=== PATIENT | male | born 1990 | race Caucasian/White ===

== ENCOUNTER → 2017-05-25 | Outpatient (CLI) | payer OTHER ==
--- NOTE | 2017-05-25 14:38 | XR ---
Cervical spine HISTORY: Sprain, trauma and pain X views of the cervical spine Comparisons Cervical vertebral bodies show preserved height, alignment, and bone mineralization. Disc spaces are maintained. No significant foraminal encroachment. IMPRESSION: No acute fracture or subluxation.
--- NOTE | 2017-05-25 14:40 | XR ---
Lumbosacral spine HISTORY: Trauma and pain Views of the lumbosacral spine Lumbar vertebral bodies show preserved height and alignment. There is no spondylolysis. Bone minerali zation is maintained. Disc spaces are normal. IMPRESSION: No fracture or subluxation.
--- NOTE | 2017-05-25 16:11 | XR ---
Thoracic spine HISTORY: Trauma and pain 2 views of the thoracic spine on 4 images There is a slight spinal curvature. Thoracic vertebral bodies show preserved height, alignment, and b one mineralization. There is multilevel spondylosis. Disc spaces are maintained. IMPRESSION: Thoracic spondylosis. No acute fracture or subluxation. Mild spinal curvature.
== END ==
LOC: RADXRMAIN 13:57
PROVIDERS: ATTEND Family Medicine
DX: S13.9XXA Sprain of joints and ligaments of unspecified parts of neck, initial encounter (principal); S23.3XXA Sprain of ligaments of thoracic spine, initial encounter; M47.814 Spondylosis without myelopathy or radiculopathy, thoracic region
CPT/HCPCS: 72050; 72072; 72110

== ENCOUNTER → 2017-07-17 | Outpatient (CLI) | payer OTHER ==
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
== END | disposition home or self-care (01) ==
LOC: RADMRIMAIN 07:12
PROVIDERS: ATTEND Family Medicine
DX: M54.2 Cervicalgia (principal)
CPT/HCPCS: 72141

== ENCOUNTER → 2019-06-18 | Outpatient (CLI) | payer OTHER ==
[2019-06-18 12:34] LABS: Basophils # (A) 0.1 k/uL (0-0.2); Basophils % (A) 1 %; Eosinophils # (A) 0.1 k/uL (0-0.7); Eosinophils % (A) 2 %; HCT 48.5 % (39.0-53.0); HGB 16.4 gm/dL (13.0-17.5); Lymphocytes % (A) 31 %; MCH 29.8 pg (25.0-35.0); MCHC 33.7 g/dL (31.0-37.0); MCV 88.3 fL (80.0-100.0); Mean Platelet Volume 8.5; Monocytes # (A) 0.4 k/uL (0-1.0); Monocytes % (A) 6 %; Neutrophils # (A) 3.8 k/uL (1.3-7.7); Neutrophils % (A) 59 %; Platelet Count 247 k/uL (150-450); RBC 5.49 m/uL (4.30-5.90); RDW 12.9 % (11.5-15.5); WBC 6.5 k/uL (3.8-10.6)
[2019-06-18 18:36] LABS: African American GFR (CKD) 116.5 (60.0-200.0); Albumin 4.8 g/dL (3.80-4.90); Albumin/Globulin Ratio 2.29 (1.60-3.17); Anion Gap 9.2 mmol/L (4.00-12.00); Bilirubin, Conjugated 0.2 mg/dL (0.20-0.40); Bilirubin,Unconjugated 0.4 mg/dL; Calcium 9.8 mg/dL (8.7-10.3); Carbon Dioxide 26.8 mmol/L (21.6-31.8); Chol/HDL Ratio 5.54; Globulin 2.1 g/dL (1.6-3.3); LDL Cholesterol,Calculated 99.6 mg/dL (0.0-131.0); Non-African American GFR(CKD) 100.5 (60.0-200.0); Potassium 4.7 mmol/L (3.5-5.5); Total Bilirubin 0.6 mg/dL (0.2-1.2); Total Protein 6.9 g/dL (6.2-8.2); VLDL Calculation 77.4 mg/dL (5.00-40.00)
== END | disposition home or self-care (01) ==
LOC: LABWHC1 11:11
PROVIDERS: ATTEND Family Medicine
DX: Z00.00 Encounter for general adult medical examination without abnormal findings (principal)
CPT/HCPCS: 36415; 80053; 80061; 82248; 84443; 85025

== ENCOUNTER 2020-10-29 09:54 | Inpatient (IN) | payer OTHER ==
[2020-10-29] MEDS ORDERED: ACETAMINOPHEN TAB 500 MG TAB PO STA (10:20)
[2020-10-29] MEDS ORDERED: SODIUM CHLORIDE 0.9% 1,000 ML IV STA (10:21)
[2020-10-29] MEDS ORDERED: IBUPROFEN 600 MG TAB PO STA (10:21)
--- NOTE | 2020-10-29 10:36 | ED ---
SOB HPI <Jose Donaldson - Last Filed: 10/29/20 13:22> - General Source: patient Mode of arrival: ambulatory Limitations: no limitations <Hellen Newell - Last Filed: 10/29/20 13:39> - General Chief Complaint: Shortness of Breath Stated Complaint: positive covid SOB Time Seen by Provider: 10/29/20 10:03 - History of Present Illness Initial Comments: Patient is a 30-year-old male presenting to the emergency department via EMS with increasing shortness of breath over the past week. Patient states his covid symptoms started 9 days ago, he went to the urgent care and was diagnosed one week ago with covid. He states he has not had fevers until today. He's been having a cough, burning in his chest when he coughs as well as some mild shortness of breath. He's been having diarrhea as well. No vomiting, is trying to drink fluids, appetite has been low. He states he did not take any Tylenol or Motrin yet today. He denies history of asthma. He went back to urgent care today who called EMS because his oxygen levels were in the mid 80s. He denies any chest pains, no abdominal pain. He is complaining of some achiness in his left lower back. He has no further complaints at this time. Upon arrival to the ER, he is febrile 101.9, tachycardia at 109, 93% on 2 L. (Hellen Newell) - Related Data Home Medications Medication Instructions Recorded Confirmed No Known Home Medications 10/29/20 10/29/20 Allergies Allergy/AdvReac Type Severity Reaction Status Date / Time No Known Allergies Allergy Verified 10/29/20 11:02 Review of Systems ROS Other: All systems not noted in ROS Statement are negative. <Jose Donaldson - Last Filed: 10/29/20 13:22> ROS Other: All systems not noted in ROS Statement are negative. <Hellen Newell - Last Filed: 10/29/20 13:39> ROS Statement: Those systems with pertinent positive or pertinent negative responses have been documented in the HPI. Past Medical History Past Medical History: No Reported History History of Any Multi-Drug Resistant Organisms: None Reported Past Surgical History: No Surgical Hx Reported Past Psychological History: No Psychological Hx Reported Smoking Status: Former smoker Past Alcohol Use History: Occasional Past Drug Use History: None Reported <Hellen Newell - Last Filed: 10/29/20 13:39> General Exam Limitations: no limitations <Hellen Newell - Last Filed: 10/29/20 13:39> - General Exam Comments Initial Comments: GENERAL: Patient is well-developed and well-nourished. Patient is nontoxic and in no acute distress. HEAD: Atraumatic, normocephalic. EYES: Pupils equal round and reactive to light, extraocular movements intact, sclera anicteric, conjunctiva are normal. Eyelids were unremarkable. ENT: TMs normal, nares patent, oropharynx clear without exudates. Moist mucous membranes. NECK: Normal range of motion, supple without lymphadenopathy or JVD. LUNGS: Unlabored respirations. Breath sounds clear to auscultation bilaterally and equal. No wheezes rales or rhonchi. HEART: Tachycardia rate and rhythm without murmurs, rubs or gallops. ABDOMEN: Soft, nontender, normoactive bowel sounds. No guarding, no rebound. No masses appreciated. : Deferred MUSCULOSKELETAL: Normal extremities with adequate strength and normal range of motion, no pitting or edema. No clubbing or cyanosis. NEUROLOGICAL: Patient is alert and oriented x 3. Motor and sensory are also intact. Cranial nerves II through XII grossly intact. Symmetrical smile. Normal speech, normal gait. PSYCH: Normal mood, normal affect. SKIN: Warm, Dry, normal turgor, no rashes or lesions noted. (Hellen Newell) Course Vital Signs 10/29/20 10/29/20 10/29/20 09:56 10:20 10:22 Temperature 101.9 F H Pulse Rate 109 H Respiratory 18 Rate Blood Pressure 116/75 O2 Sat by Pulse 97 88 L 93 L Oximetry 10/29/20 10/29/20 11:25 12:28 Temperature 100 F H Pulse Rate 97 98 Respiratory 18 18 Rate Blood Pressure 108/63 100/62 O2 Sat by Pulse 93 L 93 L Oximetry Medical Decision Making - Lab Data Result diagrams: 10/29/20 10:24 10/29/20 10:24 <Jose Donaldson - Last Filed: 10/29/20 13:22> - Lab Data Result diagrams: 10/29/20 10:24 10/29/20 10:24 <Hellen Newell - Last Filed: 10/29/20 13:39> - Medical Decision Making Patient reevaluated. Patient has wheezing. Changes with x-ray and computed tomography scan. Patient updated on results and plan. Case discussed in detail with Dr. Krishnan, who will admit his patient. (Jose Donaldson) Patient is a 30-year-old healthy male here diagnosed with Covid one week ago here for increased shortness of breath. He did come via EMS from urgent care due to low oxygen saturation. His symptoms started 9 days ago. He did arrive febrile, slightly tachycardia, 93% on 2 L. he does drop down to 8887% on room air. Labs show a white count of 15.4, sodium is 132, liver enzymes, LDH and CRP are all elevated consistent with Covid infection. D-dimer is elevated at 1.09. Chest x-ray shows correlate for pneumonia, possible associated effusion. Given a positive d-dimer and a fusion, CT of the chest was ordered, and shows no evidence for PE, bilateral infiltrates, moderate left lower lobe atelectasis with pleural effusion. Patient was given some fluids, Tylenol and Motrin for his fever. He remains stable at 93% on 2 L. Patient will be admitted for Covid pneumonia, hypoxia, left pleural effusion. Dr. Krishnan is accepting with pulmonary on consult. We will start albuterol inhaler, IV steroids. Case discussed with Dr. Donaldson. (Hellen Newell) - Lab Data Lab Results 10/29/20 10/29/20 10/29/20 Range/Units 10:24 10:24 10:24 WBC 15.4 H (3.8-10.6) k/uL RBC 4.97 (4.30-5.90) m/uL Hgb 15.1 (13.0-17.5) gm/dL Hct 42.3 (39.0-53.0) % MCV 85.1 (80.0-100.0) fL MCH 30.5 (25.0-35.0) pg MCHC 35.8 (31.0-37.0) g/dL RDW 12.5 (11.5-15.5) % Plt Count 270 (150-450) k/uL MPV 8.1 Neutrophils % 90 % Lymphocytes % 5 % Monocytes % 4 % Eosinophils % 0 % Basophils % 0 % Neutrophils # 13.9 H (1.3-7.7) k/uL Lymphocytes # 0.8 L (1.0-4.8) k/uL Monocytes # 0.6 (0-1.0) k/uL Eosinophils # 0.0 (0-0.7) k/uL Basophils # 0.1 (0-0.2) k/uL PT 11.9 (9.0-12.0) sec INR 1.1 (<1.2) APTT 26.9 (22.0-30.0) sec D-Dimer 1.09 H (<0.60) mg/L FEU Sodium 132 L (137-145) mmol/L Potassium 3.6 (3.5-5.1) mmol/L Chloride 94 L (98-107) mmol/L Carbon Dioxide 28 (22-30) mmol/L Anion Gap 10 mmol/L BUN 13 (9-20) mg/dL Creatinine 1.02 (0.66-1.25) mg/dL Est GFR (CKD-EPI)AfAm >90 (>60 ml/min/1.73 sqM) Est GFR (CKD-EPI)NonAf >90 (>60 ml/min/1.73 sqM) Glucose 127 H (74-99) mg/dL Plasma Lactic Acid Vinayak (0.7-2.0) mmol/L Calcium 8.9 (8.4-10.2) mg/dL Magnesium 2.2 (1.6-2.3) mg/dL Total Bilirubin 1.3 (0.2-1.3) mg/dL AST 108 H (17-59) U/L ALT 155 H (4-49) U/L Alkaline Phosphatase 162 H (38-126) U/L Lactate Dehydrogenase 936 H (313-618) U/L C-Reactive Protein 40.0 H (<1.0) mg/dL Total Protein 6.6 (6.3-8.2) g/dL Albumin 3.7 (3.5-5.0) g/dL 10/29/20 Range/Units 10:24 WBC (3.8-10.6) k/uL RBC (4.30-5.90) m/uL Hgb (13.0-17.5) gm/dL Hct (39.0-53.0) % MCV (80.0-100.0) fL MCH (25.0-35.0) pg MCHC (31.0-37.0) g/dL RDW (11.5-15.5) % Plt Count (150-450) k/uL MPV Neutrophils % % Lymphocytes % % Monocytes % % Eosinophils % % Basophils % % Neutrophils # (1.3-7.7) k/uL Lymphocytes # (1.0-4.8) k/uL Monocytes # (0-1.0) k/uL Eosinophils # (0-0.7) k/uL Basophils # (0-0.2) k/uL PT (9.0-12.0) sec INR (<1.2) APTT (22.0-30.0) sec D-Dimer (<0.60) mg/L FEU Sodium (137-145) mmol/L Potassium (3.5-5.1) mmol/L Chloride (98-107) mmol/L Carbon Dioxide (22-30) mmol/L Anion Gap mmol/L BUN (9-20) mg/dL Creatinine (0.66-1.25) mg/dL Est GFR (CKD-EPI)AfAm (>60 ml/min/1.73 sqM) Est GFR (CKD-EPI)NonAf (>60 ml/min/1.73 sqM) Glucose (74-99) mg/dL Plasma Lactic Acid Vinayak 1.4 (0.7-2.0) mmol/L Calcium (8.4-10.2) mg/dL Magnesium (1.6-2.3) mg/dL Total Bilirubin (0.2-1.3) mg/dL AST (17-59) U/L ALT (4-49) U/L Alkaline Phosphatase (38-126) U/L Lactate Dehydrogenase (313-618) U/L C-Reactive Protein (<1.0) mg/dL Total Protein (6.3-8.2) g/dL Albumin (3.5-5.0) g/dL - EKG Data EKG Comments: Sinus tachycardia, no signs of acute ischemia. Ventricular rate 102, RI interval 138, QT 322. (Hellen Newell) Disposition <Jose Donaldson - Last Filed: 10/29/20 13:22> Decision Date: 10/29/20 Decision Time: 13:37 <Hellen Newell - Last Filed: 10/29/20 13:39> Clinical Impression: Pneumonia due to COVID-19 virus, Hypoxia, Pleural effusion, left Disposition: ADMITTED IP TO THIS [facility] Condition: Stable Referrals: Steve Banda MD [Primary Care Provider] - 1-2 days
[2020-10-29 10:45] LABS: Basophils # (A) 0.1 k/uL (0-0.2); Basophils % (A) 0 %; Eosinophils % (A) 0 %; HCT 42.3 % (39.0-53.0); HGB 15.1 gm/dL (13.0-17.5); Lymphocytes # (A) 0.8 k/uL (1.0-4.8); Lymphocytes % (A) 5 %; MCH 30.5 pg (25.0-35.0); MCHC 35.8 g/dL (31.0-37.0); MCV 85.1 fL (80.0-100.0); Mean Platelet Volume 8.1; Monocytes # (A) 0.6 k/uL (0-1.0); Monocytes % (A) 4 %; Neutrophils # (A) 13.9 k/uL (1.3-7.7); Neutrophils % (A) 90 %; Platelet Count 270 k/uL (150-450); RBC 4.97 m/uL (4.30-5.90); RDW 12.5 % (11.5-15.5); WBC 15.4 k/uL (3.8-10.6)
[2020-10-29 11:01] LABS: ALT 155 U/L (4-49); AST 108 U/L (17-59); African American GFR (CKD) >90 (>60 ml/min/1.73 sqM); Albumin 3.7 g/dL (3.5-5.0); Alkaline Phosphatase 162 U/L (38-126); Anion Gap 10 mmol/L; Blood Urea Nitrogen 13 mg/dL (9-20); Calcium 8.9 mg/dL (8.4-10.2); Carbon Dioxide 28 mmol/L (22-30); Chloride 94 mmol/L (98-107); Glucose 127 mg/dL (74-99); LDH 936 U/L (313-618); Magnesium 2.2 mg/dL (1.6-2.3); Non-African American GFR(CKD) >90 (>60 ml/min/1.73 sqM); Potassium 3.6 mmol/L (3.5-5.1); Sodium 132 mmol/L (137-145); Total Bilirubin 1.3 mg/dL (0.2-1.3); Total Protein 6.6 g/dL (6.3-8.2)
[2020-10-29 11:10] LABS: INR 1.1 (<1.2); Partial Thromboplastin Time 26.9 sec (22.0-30.0); Prothrombin Time 11.9 sec (9.0-12.0)
[2020-10-29 11:20] LABS: D-Dimer 1.09 mg/L FEU (<0.60)
--- NOTE | 2020-10-29 11:21 | XR ---
EXAMINATION TYPE: XR chest 1V portable DATE OF EXAM: 10/29/2020 COMPARISON: NONE HISTORY: Covid positive, shortness breath and cough TECHNIQUE: Single frontal view of the chest is obtained. FINDINGS: There is abnormal density at the left lung base, the left heart border and left hemidiaphr agm are secured. There is no evident pneumothorax. Minimal patchy density on the right. Heart is not entirely visualized. Patient is rotated. IMPRESSION: Correlate for pneumonia, there may be associated effusion.
--- NOTE | 2020-10-29 12:20 | CT ---
EXAMINATION TYPE: CT chest angio for PE DATE OF EXAM: 10/29/2020 COMPARISON: None HISTORY: Shortness of breath and cough CT DLP: 428.3 mGycm CONTRAST: CT chest with contrast and 3D reconstruction with MIP imaging is performed with IV Contrast, patient injected with 83 mL of Isovue 370. Contrast-enhanced CT of the chest was performed through the course of the pulmonary arteries with dilia g and mediastinal window settings submitted. 3D reconstruction with MIP imaging was also performed. PULMONARY ARTERIES: The pulmonary arteries and their major tributaries are patent. I do not see balta dence for sizable filling defect to suggest pulmonary embolic process. LUNGS: Bilateral infiltrates noted. Moderate left lower lobe atelectasis with pleural effusion. No pu lmonary nodule or mass is detected. MEDIASTINUM: Thoracic aorta is of normal caliber,however, evaluation is limited given timing of the contrast bolus. If there is concern for thoracic aortic pathology consider MEDARDO. Correlate clinicall y . The heart is not enlarged. No evidence for mediastinal mass. No mediastinal lymph nodes greater than 1cm. HILAR STRUCTURES: No evidence for mass. No hilar lymph nodes greater than 1 cm. UPPER ABDOMEN: No significant abnormality is seen. IMPRESSION: 1. No evidence for Pulmonary embolism at this time. 2.Bilateral infiltrates noted. Moderate left lower lobe atelectasis with pleural effusion.
[2020-10-29] MEDS ORDERED: NALOXONE 0.4 MG/ML 1 ML VIAL IV PRN (13:33)
[2020-10-29] MEDS ORDERED: IBUPROFEN 400 MG TAB PO PRN (13:33)
[2020-10-29] MEDS ORDERED: ALBUTEROL HFA INHALER INHALATION STA (13:35)
[2020-10-29] MEDS: DEXAMETHASONE SOD PHOSPHATE 10 MG/ML 1 ML VIAL IV SCH (14:00)
[2020-10-29] MEDS: PANTOPRAZOLE 40 MG/10 ML VIAL IVP SCH (16:00)
[2020-10-29] MEDS: ENOXAPARIN 40 MG/0.4 ML SYRINGE SQ SCH (16:00)
[2020-10-29] MEDS ORDERED: REMDESIVIR 200 MG in SODIUM CHLORIDE 0.9% 250 ML IVPB ONE (16:00)
[2020-10-29] MEDS ORDERED: AZITHROMYCIN 500 MG in SODIUM CHLORIDE 0.9% 250 ML IVPB SCH (18:00)
--- NOTE | 2020-10-29 18:08 | P.CNPUL ---
History of Present Illness Consult date: 10/29/20 Requesting physician: Jose Donaldson Reason for consult: chest pain, hypoxemia, pneumonia, pleural effusion, abnormal CXR/CT Chief complaint: Chest pain, back discomfort, pneumonia, COVID 19 History of present illness: 30-year-old white male patient with significant medical history, who is a former smoker, who presented to the emergency department via EMS on 10/29/2020 with increasing shortness of breath over the course of the past week. Patient and symptoms of comorbid 9 days ago, she went to the [facility] urgent care and was diagnosed with COVID-19 infection. He states he did not have fevers until today. His been having a cough, burning in his chest, back discomfort, his been having diarrhea as well, but no vomiting. He is trying to maintain his fluid intake, but appetite has been poor. He denies any chronic medical conditions, denies any chronic lung disease. He states they did not do a chest x-ray at the urgent care clinic. He did not require oxygen when he was seen there. Today she went back to the urgent care clinic who called the EMS because of his oxygen levels that were low in the mid 80s. He complains of achy discomfort in his left lower back. Upon arrival to the ER he had a fever of 101.9, tachycardia at 109, and he is on 2 L of supplemental oxygen with a pulse ox of 93%. Chest x- ray shows abnormal density at the left lung base, there is no evident pneu mothorax, there is minimal patchy density on the right. CTA chest showed no evidence of pulmonary embolism at this time, and bilateral infiltrates with moderate left lower lobe atelectasis with pleural effusion. EKG showed sinus tachycardia at a rate of 102 BPM. His white blood cell count is elevated at 15.4, hemoglobin is 15.1, his neutrophil count is 13.9, his lymphopenic with lymphocyte count 0.8, d-dimer was elevated at 1.[address] evidence of pulmonary embolism, sodium is 132, potassium is 3.6, chloride is 94, BUN is 13 and creatinine is 1.02, plasma lactic acid was 1.4, AST was 108, ALT was 155, alk phos was 162, LDH was 936, and CRP is 40. Review of Systems All systems: negative Constitutional: Denies chills, Denies fever Eyes: denies blurred vision, denies pain Ears, nose, mouth and throat: Denies headache, Denies sore throat Cardiovascular: Reports chest pain, Denies shortness of breath Respiratory: Reports dyspnea, Denies cough Gastrointestinal: Denies abdominal pain, Denies diarrhea, Denies nausea, Denies vomiting Musculoskeletal: Denies myalgias Integumentary: Denies pruritus, Denies rash Neurological: Denies numbness, Denies weakness Psychiatric: Denies anxiety, Denies depression Endocrine: Denies fatigue, Denies weight change Past Medical History Past Medical History: No Reported History History of Any Multi-Drug Resistant Organisms: None Reported Past Surgical History: No Surgical Hx Reported Past Psychological History: No Psychological Hx Reported Smoking Status: Former smoker Past Alcohol Use History: Occasional Past Drug Use History: None Reported Medications and Allergies Home Medications Medication Instructions Recorded Confirmed Type No Known Home Medications 10/29/20 10/29/20 History Allergies Allergy/AdvReac Type Severity Reaction Status Date / Time No Known Allergies Allergy Verified 10/29/20 11:02 Physical Exam Vitals: Vital Signs Temp Pulse Pulse Resp BP BP Pulse Ox 10/29/20 16:49 98.6 F 93 16 114/74 91 L 10/29/20 14:45 18 10/29/20 14:20 98.4 F 73 18 111/74 96 10/29/20 13:44 91 18 107/72 94 L 10/29/20 12:28 100 F H 98 18 100/62 93 L 10/29/20 11:25 97 18 108/63 93 L 10/29/20 10:22 93 L 10/29/20 10:20 88 L 10/29/20 09:56 101.9 F H 109 H 18 116/75 97 Intake and Output 10/29/20 10/29/20 10/29/20 06:59 14:59 22:59 Other: Weight 101.605 kg GENERAL EXAM: Alert, very pleasant, 30-year-old white male on 2 L of oxygen and the pulse ox 91-96%, comfortable in no apparent distress. HEAD: Normocephalic/atraumatic. EYES: Normal reaction of pupils, equal size. Conjunctiva pink, sclera white. NOSE: Clear with pink turbinates. THROAT: No erythema or exudates. NECK: No masses, no JVD, no thyroid enlargement, no adenopathy. CHEST: No chest wall deformity. Symmetrical expansion. LUNGS: Equal air entry with diminished breath sounds and crackles at the left base CVS: Regular rate and rhythm, normal S1 and S2, no gallops, no murmurs, no rubs ABDOMEN: Soft, nontender. No hepatosplenomegaly, normal bowel sounds, no guarding or rigidity. EXTREMITIES: No clubbing, no edema, no cyanosis, 2+ pulses and upper and lower extremities. MUSCULOSKELETAL: Muscle strength and tone normal. SPINE: No scoliosis or deformity SKIN: No rashes CENTRAL NERVOUS SYSTEM: Alert and oriented -3. No focal deficits, tone is normal in all 4 extremities. PSYCHIATRIC: Alert and oriented -3. Appropriate affect. Intact judgment and insight. Results - Laboratory Findings CBC and BMP: 10/29/20 10:24 10/29/20 10:24 PT/INR, D-dimer PT 11.9 sec (9.0-12.0) 10/29/20 10:24 INR 1.1 (<1.2) 10/29/20 10:24 D-Dimer 1.09 mg/L FEU (<0.60) H 10/29/20 10:24 Abnormal lab findings: Abnormal Labs 10/29/20 10/29/20 10/29/20 10:24 10:24 10:24 WBC 15.4 H Neutrophils # 13.9 H Lymphocytes # 0.8 L D-Dimer 1.09 H Sodium 132 L Chloride 94 L Glucose 127 H AST 108 H ALT 155 H Alkaline Phosphatase 162 H Lactate Dehydrogenase 936 H C-Reactive Protein 40.0 H - Diagnostic Findings Chest x-ray: report reviewed, image reviewed CT scan - chest: report reviewed, image reviewed Assessment and Plan Plan: Assessment #1. Acute hypoxic respiratory failure secondary to COVID-19 pneumonia and possibility of community acquired pneumonia in the left lower lobe with parapneumonic pleural effusion. Patient was started on antibiotics and Remdesivir today on 10/29/2020 #2. Elevated d-dimer of 1.[address] evidence of pulmonary embolism #3. Elevated liver enzymes, possibly related to viral pneumonia, we'll also test for Legionella pneumonia #4. Hyponatremia, possibly related to dehydration #5. Former smoker Plan: Continue Decadron Chest x-ray and CT chest reviewed, suspect possibility of left lung pneumonia with parapneumonic effusion, which appears to be loculated, we will add empiric antibiotics in the form of azithromycin and Rocephin We will start on Remdesivir send procalcitonin level, and Legionella urine antigen Continue IV hydration GI and DVT prophylaxis Follow-up chest x-ray tomorrow If doesn't show improvement consider ultrasound of the chest I performed a history & physical examination of the patient and discussed their management with my nurse practitioner, Melba Cardenas. I reviewed the nurse practitioner's note and agree with the documented findings and plan of care. Lung sounds are positive for bibasilar rales. The findings and the impression was discussed with the patient. I attest to the documentation by the nurse practitioner. Time with Patient: Greater than 30
[2020-10-29] MEDS: ACETAMINOPHEN TAB 325 MG TAB PO PRN (19:39)
[2020-10-29] MEDS: ASCORBIC ACID 500 MG TAB PO SCH (19:39)
[2020-10-30] MEDS: ACETAMINOPHEN TAB 325 MG TAB PO PRN ×2 (05:49→20:37)
--- NOTE | 2020-10-30 07:28 | XR ---
EXAMINATION TYPE: XR chest 1V portable DATE OF EXAM: 10/30/2020 COMPARISON: Chest x-ray 10/29/2020 HISTORY: Pneumonia TECHNIQUE: Single frontal view of the chest is obtained. FINDINGS: Findings are similar to prior exam. Patchy bilateral airspace disease noted IMPRESSION: Left lower lobe atelectasis versus pneumonia and associated effusion,, bilateral pneumon ia, follow-up recommended
[2020-10-30] MEDS: PANTOPRAZOLE 40 MG/10 ML VIAL IVP SCH (08:22)
[2020-10-30] MEDS: ZINC SULFATE 220 MG CAP PO SCH (08:22)
[2020-10-30] MEDS: ENOXAPARIN 40 MG/0.4 ML SYRINGE SQ SCH (08:22)
[2020-10-30] MEDS: ASCORBIC ACID 500 MG TAB PO SCH ×2 (08:22→20:42)
[2020-10-30] MEDS: DEXAMETHASONE SOD PHOSPHATE 10 MG/ML 1 ML VIAL IV SCH (08:22)
[2020-10-30 08:29] LABS: ALT 124 U/L (4-49); AST 86 U/L (17-59); African American GFR (CKD) >90 (>60 ml/min/1.73 sqM); Albumin 3.1 g/dL (3.5-5.0); Albumin/Globulin Ratio 1.2; Alkaline Phosphatase 144 U/L (38-126); Anion Gap 11 mmol/L; Blood Urea Nitrogen 14 mg/dL (9-20); Calcium 8.8 mg/dL (8.4-10.2); Carbon Dioxide 25 mmol/L (22-30); Chloride 99 mmol/L (98-107); Globulin 2.6 g/dL; Glucose 122 mg/dL (74-99); Non-African American GFR(CKD) >90 (>60 ml/min/1.73 sqM); Potassium 3.6 mmol/L (3.5-5.1); Sodium 135 mmol/L (137-145); Total Protein 5.7 g/dL (6.3-8.2)
[2020-10-30 09:03] LABS: C Reactive Protein 36.1 mg/dL (<1.0)
[2020-10-30 11:56] LABS: Basophils # (A) 0.02 X 10*3/uL (0.00-0.10); Basophils % (A) 0.1 %; Eosinophils # (A) 0 X 10*3/uL (0.04-0.35); Eosinophils % (A) 0 %; HCT 38.7 % (39.6-50.0); HGB 13.1 g/dL (13.0-17.0); Lymphocytes # (A) 0.92 X 10*3/uL (0.90-5.00); Lymphocytes % (A) 4.7 %; MCH 29.2 pg (27.0-32.0); MCHC 33.9 g/dL (32.0-37.0); MCV 86.2 fL (80.0-97.0); Monocytes # (A) 1.06 X 10*3/uL (0.20-1.00); Monocytes % (A) 5.4 %; Neutrophils # (A) 17.55 X 10*3/uL (1.80-7.70); Neutrophils % (A) 88.8 %; Platelet Count 332 X 10*3/uL (140-440); RBC 4.49 X 10*6/uL (4.40-5.60); RDW 12.8 % (11.5-14.5); WBC 19.74 X 10*3/uL (4.50-10.00)
--- NOTE | 2020-10-30 14:07 | P.HPIM ---
History of Present Illness H&P Date: 10/30/20 Chief Complaint: Shortness of breath, positive for Covid 30-year-old male patient presenting to the emergency department via EMS for worsening shortness of breath over the week. Patient had been seen at a local urgent care approximately 1 week ago. He was treated and sent home to quarantine and treat with [id number] medications. Patient's symptoms worsened and presented to same urgent care where he was found to have oxygen saturations in the low 80s. EMS was called and he was subsequently brought to the emergency room for treatment. In the emergency room his temperature was 101.9, and his tachycardia to 109 in maintain oxygen saturation 93% on 2 L nasal cannula. Patient history of no home medications at this time. 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 Currently patient is sitting up in bed in 2 L nasal cannula resting comfortably does complain of left sided pain with deep breathing and coughing. States his pain i s improved from yesterday. Patient mentions gastric upset over the past several days with noted diarrhea is improving at this time. Most recent lab work WBC is 19.7, hemoglobin 13.1, hematocrit 38.7, platelet count of 332, d-dimer of 1.20. Chemistry reveals sodium of 135, potassium 3.6, JOHN of 14, creatinine 0.81, lupus 122, liver enzymes are improved today is AST of 86 and ELT of 124 and alk phos trending down as well to 144. C-reactive protein trending down to 36.1 with a pro-calcitonin level of 1.04 Review of Systems Constitutional: Reports as per HPI, Reports chills, Reports fatigue, Reports fever, Reports sweats Ears, nose, mouth and throat: Reports as per HPI Cardiovascular: Reports as per HPI Respiratory: Reports cough, Reports dyspnea, Reports pain on inspiration, Reports respiratory infections Gastrointestinal: Reports diarrhea Genitourinary: Reports as per HPI Musculoskeletal: Reports myalgias Integumentary: Reports as per HPI Neurological: Reports as per HPI Psychiatric: Reports as per HPI Endocrine: Reports as per HPI Hematologic/Lymphatic: Reports as per HPI Allergic/Immunologic: Reports as per HPI Past Medical History Past Medical History: No Reported History History of Any Multi-Drug Resistant Organisms: None Reported Past Surgical History: No Surgical Hx Reported Past Psychological History: No Psychological Hx Reported Smoking Status: Former smoker Past Alcohol Use History: Occasional Past Drug Use History: None Reported Medications and Allergies Home Medications Medication Instructions Recorded Confirmed Type No Known Home Medications 10/29/20 10/29/20 History Allergies Allergy/AdvReac Type Severity Reaction Status Date / Time No Known Allergies Allergy Verified 10/29/20 11:02 Physical Exam Vitals: Vital Signs Temp Pulse Resp BP Pulse Ox 10/30/20 13:27 98.8 F 92 20 120/73 89 L 10/30/20 09:37 98.6 F 91 20 116/75 92 L 10/30/20 08:29 98.6 F 100 10/30/20 08:00 15 10/30/20 03:52 100.0 F H 90 109/63 89 L 10/29/20 21:51 98.8 F 104 H 96/60 92 L 10/29/20 20:00 104 H 16 10/29/20 16:49 98.6 F 93 16 114/74 91 L 10/29/20 14:45 18 10/29/20 14:20 98.4 F 73 18 111/74 96 Intake and Output 10/29/20 10/30/20 10/30/20 22:59 06:59 14:59 Intake Total 480 Balance 480 Intake: Oral 480 Other: # Voids 2 GENERAL: Well-appearing, on 2 L nasal cannula, well-nourished and in no acute distress. HEAD: Atraumatic, normocephalic. EYES: Pupils equal round and reactive to light, extraocular movements intact, sclera anicteric, conjunctiva are normal. ENT:nares patent, oropharynx clear without exudates. Moist mucous membranes. NECK: Normal range of motion, supple without lymphadenopathy or JVD, no thyromegaly LUNGS: Breath sounds are with bilateral basilar crackles HEART: Regular rate and rhythm without murmurs, rubs or gallops.S1S2 Normal ABDOMEN: Soft, nontender, normoactive bowel sounds. No guarding, no rebound. No masses appreciated. EXTREMITIES: Normal range of motion, no pitting or edema. No clubbing or cyanosis. NEUROLOGICAL: Cranial nerves II through XII grossly intact. Normal speech, normal gait. PSYCH: Normal mood, normal affect. SKIN: Warm, Dry, normal turgor, no rashes or lesions noted. Results CBC & Chem 7: 10/30/20 07:31 04/24/21 07:31 Labs: Abnormal Lab Results - Last 24 Hours (Table) 10/29/20 10/30/20 10/30/20 Range/Units 15:19 07:31 07:31 WBC 19.74 H (4.50-10.00) X 10*3/uL Hct 38.7 L (39.6-50.0) % Immature Gran # 0.19 H (0.00-0.04) X 10*3/uL Neutrophils # 17.55 H (1.80-7.70) X 10*3/uL Monocytes # 1.06 H (0.20-1.00) X 10*3/uL Eosinophils # 0 L (0.04-0.35) X 10*3/uL D-Dimer (<0.60) mg/L FEU Sodium (137-145) mmol/L Glucose (74-99) mg/dL AST (17-59) U/L ALT (4-49) U/L Alkaline Phosphatase (38-126) U/L C-Reactive Protein (<1.0) mg/dL Total Protein (6.3-8.2) g/dL Albumin (3.5-5.0) g/dL Procalcitonin 1.56 H 1.04 H (0.02-0.09) ng/mL 10/30/20 10/30/20 Range/Units 07:31 07:31 WBC (4.50-10.00) X 10*3/uL Hct (39.6-50.0) % Immature Gran # (0.00-0.04) X 10*3/uL Neutrophils # (1.80-7.70) X 10*3/uL Monocytes # (0.20-1.00) X 10*3/uL Eosinophils # (0.04-0.35) X 10*3/uL D-Dimer 1.20 H (<0.60) mg/L FEU Sodium 135 L (137-145) mmol/L Glucose 122 H (74-99) mg/dL AST 86 H (17-59) U/L ALT 124 H (4-49) U/L Alkaline Phosphatase 144 H (38-126) U/L C-Reactive Protein 36.1 H (<1.0) mg/dL Total Protein 5.7 L (6.3-8.2) g/dL Albumin 3.1 L (3.5-5.0) g/dL Procalcitonin (0.02-0.09) ng/mL Microbiology - Last 24 Hours (Table) 10/29/20 10:24 Blood Culture - Preliminary Blood No Growth after 24 hours 10/29/20 10:24 Blood Culture - Preliminary Blood No Growth after 24 hours Thrombosis Risk Factor Assmnt - Choose All That Apply Any of the Below Risk Factors Present?: No Other Risk Factors: No Other congenital or acquired thrombophilia - If yes, enter type in comment: No Thrombosis Risk Factor Assessment Level: Very Low Risk Assessment and Plan (1) Hypoxia Current Visit: Yes Status: Acute Code(s): R09.02 - HYPOXEMIA SNOMED Code(s): 193455681 (2) Pleural effusion, left Current Visit: Yes Status: Acute Code(s): J90 - PLEURAL EFFUSION, NOT ELSEWHERE CLASSIFIED SNOMED Code(s): 18087154 (3) Pneumonia due to COVID-19 virus Current Visit: Yes Status: Acute Code(s): U07.1 - COVID-19; J12.82 - Pneumonia due to coronavirus disease 2019 SNOMED Code(s): 352697274127714436 (4) Fatigue Current Visit: Yes Status: Acute Code(s): R53.83 - OTHER FATIGUE SNOMED Code(s): 46410046 (5) Myalgia after severe acute respiratory syndrome coronavirus 2 (SARS-CoV-2) vaccination Current Visit: Yes Status: Acute Code(s): M79.10 - MYALGIA, UNSPECIFIED SITE; T50.B95A - ADVERSE EFFECT OF OTHER VIRAL VACCINES, INITIAL ENCOUNTER SNOMED Code(s): 29159876 Plan: 1. Continue current medication regimen 2. IV antibiotics of azithromycin and ceftriaxone 3. Dexamethasone 4. Continue with ROM does appear 5. Lovenox for DVT prophylaxis 6. Protonix for PPI prophylaxis 7. Titrate nasal cannula maintaining oxygen sats greater than 90% 8. Continue with supportive therapy of vitamin C, zinc 9. We'll order lab work for tomorrow 10. We'll continue to monitor labs and vitals and treat accordingly. 11. We'll reassess again tomorrow. Time with Patient: Greater than 30
--- NOTE | 2020-10-30 14:34 | US ---
EXAMINATION TYPE: US chest DATE OF EXAM: 10/30/2020 COMPARISON: NONE CLINICAL HISTORY: pneumonia, left effusion. left pleural effusion TECHNIQUE: Targeted ultrasound of the posterior lower bilateral hemithoraces EXAM MEASUREMENTS: Right Pleural Effusion pocket size: no fluid collection visualized at this time Left Pleural Effusion pocket size: minimal fluid collection = 1.1 cm - appears loculated Left skin surface to fluid distance: 2.7 cm Right side NOT marked for possible thoracentesis outside the dept. Left side NOT marked for possible thoracentesis outside the dept. Pulmonologists are able to review the images in the patient?s EMR. IMPRESSIONS: There is loculated left pleural effusion. No significant right side pleural fluid identi fied.
[2020-10-30] MEDS: REMDESIVIR 100 MG in SODIUM CHLORIDE 0.9% 250 ML IVPB SCH (16:00)
--- NOTE | 2020-10-30 16:47 | P.PN ---
Subjective Progress Note Date: 10/30/20 Principal diagnosis: COVID-19 pneumonia, and currently acquired pneumonia with parapneumonic effusion 30-year-old white male patient with significant medical history, who is a former smoker, who presented to the emergency department via EMS on 10/29/2020 with increasing shortness of breath over the course of the past week. Patient and symptoms of comorbid 9 days ago, she went to the [facility] urgent care and was diagnosed with COVID-19 infection. He states he did not have fevers until today. His been having a cough, burning in his chest, back discomfort, his been having diarrhea as well, but no vomiting. He is trying to maintain his fluid intake, but appetite has been poor. He denies any chronic medical conditions, denies any chronic lung disease. He states they did not do a chest x-ray at the urgent care clinic. He did not require oxygen when he was seen there. Today she went back to the urgent care clinic who called the EMS because of his oxygen levels that were low in the mid 80s. He complains of achy discomfort in his left lower back. Upon arrival to the ER he had a fever of 101.9, tachycardia at 109, and he is on 2 L of supplemental oxygen with a pulse ox of 93%. Chest x- ray shows abnormal density at the left lung base, there is no evident p neumothorax, there is minimal patchy density on the right. CTA chest showed no evidence of pulmonary embolism at this time, and bilateral infiltrates with moderate left lower lobe atelectasis with pleural effusion. EKG showed sinus tachycardia at a rate of 102 BPM. His white blood cell count is elevated at 15.4, hemoglobin is 15.1, his neutrophil count is 13.9, his lymphopenic with lymphocyte count 0.8, d-dimer was elevated at 1.[address] evidence of pulmonary embolism, sodium is 132, potassium is 3.6, chloride is 94, BUN is 13 and creatinine is 1.02, plasma lactic acid was 1.4, AST was 108, ALT was 155, alk phos was 162, LDH was 936, and CRP is 40. On 10/30/2020 patient is seen in follow-up on medical surgical floor. Is currently on 2 L of oxygen his pulse ox is between 89-92%, appears to be comfortable, no fever, hemodynamically has been stable, his breathing is nonlabored, today's chest x-ray shows left lower lobe atelectasis and associated pleural effusion. Ultrasound the chest has been obtained, and showed no fluid collection on the right, and left pleural effusion pocket was not lars for possible thoracentesis because was loculated and minimal with fluid collection of 1.1 cm. Today's labs have been reviewed and show increase in the white blood cell count up to 19.7, hemoglobin is 13.1, d-dimer is 1.2, his electrolytes showed improvement of his sodium up to 135, and receive Activase were within normal limits, renal profile was unremarkable, liver enzymes are improving, his Legionella urine antigen was negative, his pro calcitonin level was elevated on admission at 1.56 and is improving on today's labs and is down to 1.04, patient was started on combination of azithromycin and Rocephin, and he was started on the Remdesivir and Decadron. He remains on prophylactic dose Lovenox Objective - Vital Signs Vital signs: Vital Signs Temp 98.8 F 10/30/20 13:27 Pulse 92 10/30/20 13:27 Resp 20 10/30/20 13:27 BP 120/73 10/30/20 13:27 Pulse Ox 89 L 10/30/20 13:27 Intake & Output 10/29/20 10/30/20 10/30/20 18:59 06:59 18:59 Intake Total 480 Balance 480 Weight 101.605 kg Intake: Oral 480 Other: # Voids 2 - Exam GENERAL EXAM: Alert, very pleasant, 30-year-old white male on 2 L of oxygen and the pulse ox 91-96%, comfortable in no apparent distress. HEAD: Normocephalic/atraumatic. EYES: Normal reaction of pupils, equal size. Conjunctiva pink, sclera white. NOSE: Clear with pink turbinates. THROAT: No erythema or exudates. NECK: No masses, no JVD, no thyroid enlargement, no adenopathy. CHEST: No chest wall deformity. Symmetrical expansion. LUNGS: Equal air entry with diminished breath sounds and crackles at the left base CVS: Regular rate and rhythm, normal S1 and S2, no gallops, no murmurs, no rubs ABDOMEN: Soft, nontender. No hepatosplenomegaly, normal bowel sounds, no guarding or rigidity. EXTREMITIES: No clubbing, no edema, no cyanosis, 2+ pulses and upper and lower extremities. MUSCULOSKELETAL: Muscle strength and tone normal. SPINE: No scoliosis or deformity SKIN: No rashes CENTRAL NERVOUS SYSTEM: Alert and oriented -3. No focal deficits, tone is normal in all 4 extremities. PSYCHIATRIC: Alert and oriented -3. Appropriate affect. Intact judgment and insight. - Labs CBC & Chem 7: 10/30/20 07:31 10/30/20 07:31 Labs: Abnormal Lab Results - Last 24 Hours (Table) 10/29/20 10/30/20 10/30/20 Range/Units 15:19 07:31 07:31 WBC 19.74 H (4.50-10.00) X 10*3/uL Hct 38.7 L (39.6-50.0) % Immature Gran # 0.19 H (0.00-0.04) X 10*3/uL Neutrophils # 17.55 H (1.80-7.70) X 10*3/uL Monocytes # 1.06 H (0.20-1.00) X 10*3/uL Eosinophils # 0 L (0.04-0.35) X 10*3/uL D-Dimer (<0.60) mg/L FEU Sodium (137-145) mmol/L Glucose (74-99) mg/dL AST (17-59) U/L ALT (4-49) U/L Alkaline Phosphatase (38-126) U/L C-Reactive Protein (<1.0) mg/dL Total Protein (6.3-8.2) g/dL Albumin (3.5-5.0) g/dL Procalcitonin 1.56 H 1.04 H (0.02-0.09) ng/mL 10/30/20 10/30/20 Range/Units 07:31 07:31 WBC (4.50-10.00) X 10*3/uL Hct (39.6-50.0) % Immature Gran # (0.00-0.04) X 10*3/uL Neutrophils # (1.80-7.70) X 10*3/uL Monocytes # (0.20-1.00) X 10*3/uL Eosinophils # (0.04-0.35) X 10*3/uL D-Dimer 1.20 H (<0.60) mg/L FEU Sodium 135 L (137-145) mmol/L Glucose 122 H (74-99) mg/dL AST 86 H (17-59) U/L ALT 124 H (4-49) U/L Alkaline Phosphatase 144 H (38-126) U/L C-Reactive Protein 36.1 H (<1.0) mg/dL Total Protein 5.7 L (6.3-8.2) g/dL Albumin 3.1 L (3.5-5.0) g/dL Procalcitonin (0.02-0.09) ng/mL Microbiology - Last 24 Hours (Table) 10/29/20 10:24 Blood Culture - Preliminary Blood No Growth after 24 hours 10/29/20 10:24 Blood Culture - Preliminary Blood No Growth after 24 hours Assessment and Plan Plan: Assessment #1. Acute hypoxic respiratory failure secondary to COVID-19 pneumonia and possibility of community acquired pneumonia in the left lower lobe with parapneumonic pleural effusion. Patient was started on antibiotics and Remdesivir today on 10/29/2020 #2. Elevated d-dimer of 1.[address] evidence of pulmonary embolism #3. Elevated liver enzymes, possibly related to viral pneumonia, we'll also test for Legionella pneumonia #4. Hyponatremia, possibly related to dehydration #5. Former smoker Plan: Today's chest x-ray has been reviewed Ultrasound the chest has been ordered and reviewed Left lung pleural effusion is loculated and minimal, and not possible to drain We'll continue antibiotics, pro-calcitonin is improving Continue Decadron, Remdesivir and prophylactic Lovenox Legionella urine antigen was negative We'll continue to follow his clinical course, we'll likely consider CT of the chest in a few weeks We'll continue medical treatment I performed a history & physical examination of the patient and discussed their management with my nurse practitioner, Melba Cardenas. I reviewed the nurse practitioner's note and agree with the documented findings and plan of care. Lung sounds are positive for bibasilar rales. The findings and the impression was discussed with the patient. I attest to the documentation by the nurse practitioner. Time with Patient: Less than 30
[2020-10-30] MEDS: AZITHROMYCIN 500 MG in SODIUM CHLORIDE 0.9% 250 ML IVPB SCH (20:42)
[2020-10-31 08:00] LABS: ALT 159 U/L (4-49); AST 92 U/L (17-59); African American GFR (CKD) >90 (>60 ml/min/1.73 sqM); Albumin 2.7 g/dL (3.5-5.0); Alkaline Phosphatase 140 U/L (38-126); Anion Gap 9 mmol/L; Blood Urea Nitrogen 16 mg/dL (9-20); Calcium 8.4 mg/dL (8.4-10.2); Carbon Dioxide 25 mmol/L (22-30); Chloride 105 mmol/L (98-107); Globulin 2.6 g/dL; Glucose 123 mg/dL (74-99); Non-African American GFR(CKD) >90 (>60 ml/min/1.73 sqM); Potassium 3.6 mmol/L (3.5-5.1); Sodium 139 mmol/L (137-145); Total Bilirubin 0.8 mg/dL (0.2-1.3); Total Protein 5.3 g/dL (6.3-8.2)
[2020-10-31] MEDS: ZINC SULFATE 220 MG CAP PO SCH (08:01)
[2020-10-31] MEDS: DEXAMETHASONE SOD PHOSPHATE 10 MG/ML 1 ML VIAL IV SCH (08:01)
[2020-10-31] MEDS: PANTOPRAZOLE 40 MG/10 ML VIAL IVP SCH (08:01)
[2020-10-31] MEDS: ASCORBIC ACID 500 MG TAB PO SCH ×2 (08:01→20:48)
[2020-10-31] MEDS: ENOXAPARIN 40 MG/0.4 ML SYRINGE SQ SCH (08:01)
[2020-10-31 08:05] LABS: Basophils # (A) 0.1 k/uL (0-0.2); Basophils % (A) 0 %; Eosinophils % (A) 0 %; HCT 36.6 % (39.0-53.0); HGB 12.5 gm/dL (13.0-17.5); Lymphocytes # (A) 0.9 k/uL (1.0-4.8); Lymphocytes % (A) 5 %; MCH 29.6 pg (25.0-35.0); Mean Platelet Volume 8.4; Monocytes % (A) 5 %; Neutrophils # (A) 17.3 k/uL (1.3-7.7); Neutrophils % (A) 89 %; Platelet Count 369 k/uL (150-450); RBC 4.21 m/uL (4.30-5.90); RDW 12.8 % (11.5-15.5); WBC 19.4 k/uL (3.8-10.6)
[2020-10-31] MEDS: guaiFENesin-DM 600/30MG 1 EACH TAB.ER.12H PO SCH ×2 (09:41→20:48)
--- NOTE | 2020-10-31 12:31 | P.PN ---
Subjective Progress Note Date: 10/31/20 Principal diagnosis: Covid positive, hypoxia, shortness of breath, fevers 30-year-old male patient presenting to the emergency department via EMS for worsening shortness of breath over the week. Patient had been seen at a local urgent care approximately 1 week ago. He was treated and sent home to quarantine and treat with [id number] medications. Patient's symptoms wor sened and presented to same urgent care where he was found to have oxygen saturations in the low 80s. EMS was called and he was subsequently brought to the emergency room for treatment. In the emergency room his temperature was 101.9, and his tachycardia to 109 in maintain oxygen saturation 93% on 2 L nasal cannula. Patient history of no home medications at this time. 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 Currently patient is sitting up in bed in 2 L nasal cannula resting comfortably does complain of left sided pain with deep breathing and coughing. States his pain is improved from yesterday. Patient mentions gastric upset over the past several days with noted diarrhea is improving at this time. Most recent lab work WBC is 19.7, hemoglobin 13.1, hematocrit 38.7, platelet count of 332, d- dimer of 1.20. Chemistry reveals sodium of 135, potassium 3.6, JOHN of 14, creatinine 0.81, lupus 122, liver enzymes are improved today is AST of 86 and ELT of 124 and alk phos trending down as well to 144. C-reactive protein trending down to 36.1 with a pro-calcitonin level of 1.04 10/31/2020 resting comfortably in bed at this time on 2 L nasal cannula. Denies headache, loss since taste or smell, nausea vomiting or diarrhea at this time. Patient does have complaint of left-sided pain with cough as productive with dark thick sputum. Most recent set of vitals afebrile 98.7, pulse rate 87 sinus rhythm, respiratory rate of 22, blood pressure 114/70, maintaining oxygen saturation 92% on 3 L. CBC reveals white blood count of 19.4, hemoglobin of 12. 5, hematocrit of 36.6 platelet count of 369. Chemistry reveals sodium 139, potassium 3.6, BUS 16, creatinine 0.75, liver enzymes mildly elevated with AST of 92, ELT of 159. Chest ultrasound yesterday no fluid visualized on right side although noted a left pleural effusion pocket size 1.1 cm lars for thoracentesis. Maintains IV antibiotics azithromycin and ceftriaxone. He is on day 3 of REMDESIVIR. Objective - Vital Signs Vital signs: Vital Signs Temp 98.7 F 10/31/20 10:04 Pulse 87 10/31/20 10:04 Resp 22 10/31/20 10:04 BP 114/70 10/31/20 10:04 Pulse Ox 92 L 10/31/20 10:04 Intake & Output 10/30/20 10/31/20 10/31/20 18:59 06:59 18:59 Intake Total 360 Balance 360 Intake: Oral 360 Other: Voiding Method Toilet # Voids 4 3 - Exam GENERAL: Well-appearing, well-nourished and in no acute distress. HEAD: Atraumatic, normocephalic. EYES: Pupils equal round and reactive to light, extraocular movements intact, sclera anicteric, conjunctiva are normal. ENT:nares patent, oropharynx clear without exudates. Moist mucous membranes. NECK: Normal range of motion, supple without lymphadenopathy or JVD, no thyromegaly LUNGS: Breath sounds clear and diminished bibasilar crackles. No wheezes rales or rhonchi. HEART: Regular rate and rhythm without murmurs, rubs or gallops.S1S2 Normal ABDOMEN: Soft, nontender, normoactive bowel sounds. No guarding, no rebound. No masses appreciated. EXTREMITIES: Normal range of motion, no pitting or edema. No clubbing or cyanosis. NEUROLOGICAL: Cranial nerves II through XII grossly intact. Normal speech, normal gait. PSYCH: Normal mood, normal affect. SKIN: Warm, Dry, normal turgor, no rashes or lesions noted. - Labs CBC & Chem 7: 10/31/20 07:10 10/31/20 07:10 Labs: Abnormal Lab Results - Last 24 Hours (Table) 10/29/20 10/30/20 10/31/20 Range/Units 17:55 07:31 07:10 WBC 19.4 H (3.8-10.6) k/uL RBC 4.21 L (4.30-5.90) m/uL Hgb 12.5 L (13.0-17.5) gm/dL Hct 36.6 L (39.0-53.0) % Neutrophils # 17.3 H (1.3-7.7) k/uL Lymphocytes # 0.9 L (1.0-4.8) k/uL Glucose (74-99) mg/dL AST (17-59) U/L ALT (4-49) U/L Alkaline Phosphatase (38-126) U/L Total Protein (6.3-8.2) g/dL Albumin (3.5-5.0) g/dL Procalcitonin 1.04 H (0.02-0.09) ng/mL Coronavirus (PCR) Detected A (Not Detected) 10/31/20 Range/Units 07:10 WBC (3.8-10.6) k/uL RBC (4.30-5.90) m/uL Hgb (13.0-17.5) gm/dL Hct (39.0-53.0) % Neutrophils # (1.3-7.7) k/uL Lymphocytes # (1.0-4.8) k/uL Glucose 123 H (74-99) mg/dL AST 92 H (17-59) U/L ALT 159 H (4-49) U/L Alkaline Phosphatase 140 H (38-126) U/L Total Protein 5.3 L (6.3-8.2) g/dL Albumin 2.7 L (3.5-5.0) g/dL Procalcitonin (0.02-0.09) ng/mL Coronavirus (PCR) (Not Detected) Microbiology - Last 24 Hours (Table) 10/29/20 10:24 Blood Culture - Preliminary Blood No Growth after 24 hours 10/29/20 10:24 Blood Culture - Preliminary Blood No Growth after 24 hours Assessment and Plan (1) Hypoxia Current Visit: Yes Status: Acute Code(s): R09.02 - HYPOXEMIA SNOMED Code(s): 495816710 (2) Pleural effusion, left Current Visit: Yes Status: Acute Code(s): J90 - PLEURAL EFFUSION, NOT ELSEWHERE CLASSIFIED SNOMED Code(s): 50389751 (3) Pneumonia due to COVID-19 virus Current Visit: Yes Status: Acute Code(s): U07.1 - COVID-19; J12.82 - Pneumonia due to coronavirus disease 2018 SNOMED Code(s): 790532348693933549 (4) Fatigue Current Visit: Yes Status: Acute Code(s): R53.83 - OTHER FATIGUE SNOMED Code(s): 90016987 (5) Myalgia after severe acute respiratory syndrome coronavirus 2 (SARS-CoV-2) vaccination Current Visit: Yes Status: Acute Code(s): M79.10 - MYALGIA, UNSPECIFIED SITE ; T50.B95A - ADVERSE EFFECT OF OTHER VIRAL VACCINES, INITIAL ENCOUNTER SNOMED Code(s): 27364109 Plan: 1. Continue current medication regimen 2. IV antibiotics of azithromycin and ceftriaxone 3. Dexamethasone 4. Continue with ROM does appear 5. Lovenox for DVT prophylaxis 6. Protonix for PPI prophylaxis 7. Titrate nasal cannula maintaining oxygen sats greater than 90% 8. Continue with supportive therapy of vitamin C, zinc 9. We'll order lab work for tomorrow 10. We'll continue to monitor labs and vitals and treat accordingly. 11. We'll reassess again tomorrow. Time with Patient: Greater than 30
--- NOTE | 2020-10-31 14:58 | P.PN ---
Subjective Progress Note Date: 10/31/20 Principal diagnosis: CoVID 19/bacterial pneumonia 30-year-old white male patient with significant medical history, who is a former smoker, who presented to the emergency department via EMS on 10/29/2020 with increasing shortness of breath over the course of the past week. Patient and symptoms of comorbid 9 days ago, she went to the [facility] urgent care and was diagnosed with COVID-19 infection. He states he did not have fevers until today. His been having a cough, burning in his chest, back discomfort, his been having diarrhea as well, but no vomiting. He is trying to maintain his fluid intake, but appetite has been poor. He denies any chronic medical conditions, denies any chronic lung disease. He states they did not do a chest x-ray at the urgent care clinic. He did not require oxygen when he was seen there. Today she went back to the urgent care clinic who called the EMS because of his oxygen levels that were low in the mid 80s. He complains of achy discomfort in his left lower back. Upon arrival to the ER he had a fever of 101.9, tachycardia at 109, and he is on 2 L of supplemental oxygen with a pulse ox of 93%. Chest x- ray shows abnormal density at the left lung base, there is no evident pneumothorax, there is minimal patchy density on the right. CTA chest showed no evidence of pulmonary embolism at this time, and bilateral infiltrates with moderate left lower lobe atelectasis with pleural effusion. EKG showed sinus tachycardia at a rate of 102 BPM. His white blood cell count is elevated at 15.4, hemoglobin is 15.1, his neutrophil count is 13.9, his lymphopenic with lymphocyte count 0.8, d-dimer was elevated at 1.[address] evidence of pulmonary embolism, sodium is 132, potassium is 3.6, chloride is 94, BUN is 13 and creatinine is 1.02, plasma lactic acid was 1.4, AST was 108, ALT was 155, alk phos was 162, LDH was 936, and CRP is 40. On 10/30/2020 patient is seen in follow-up on medical surgical floor. Is currently on 2 L of oxygen his pulse ox is between 89-92%, appears to be comfortable, no fever, hemodynamically has been stable, his breathing is nonlabored, today's chest x-ray shows left lower lobe atelectasis and associated pleural effusion. Ultrasound the chest has been obtained, and showed no fluid collection on the right, and left pleural effusion pocket was not lars for possible thoracentesis because was loculated and minimal with fluid collection of 1.1 cm. Today's labs have been reviewed and show increase in the white blood cell count up to 19.7, hemoglobin is 13.1, d-dimer is 1.2, his electrolytes showed improvement of his sodium up to 135, and receive Activase were within normal limits, renal profile was unremarkable, liver enzymes are improving, his Legionella urine antigen was negative, his pro calcitonin level was elevated on admission at 1.56 and is improving on today's labs and is down to 1.04, patient was started on combination of azithromycin and Rocephin, and he was started on the Remdesivir and Decadron. He remains on prophylactic dose Lovenox The patient is seen today 10/31/2020 and follow-up on the regular medical floor. He is currently sitting up in in a chair at the bedside. Awake and alert in no acute distress. Currently on 3 L/m per nasal cannula to maintain O2 saturations in the 90s. Chest x-ray does reveal a left pleural effusion. Ultrasound revealed loculated fluid with minimal free-flowing fluid. Blood cultures reveal no growth. White count 19.4. Hemoglobin 12.5. Lymphocytic 0.9. Sodium 139. Potassium 3.6. Creatinine 0.75. AST 92. ALT 159. Day #3 of Remdesivir. He remains on vitamin supplements, Lovenox, Decadron. Antibiotics in the form of ceftriaxone and azithromycin. He's been afebrile. Hemodynamically stable. Objective - Vital Signs Vital signs: Vital Signs Temp 99.7 F H 10/31/20 13:30 Pulse 89 10/31/20 13:30 Resp 18 10/31/20 13:30 BP 112/69 10/31/20 13:30 Pulse Ox 91 L 10/31/20 13:30 Intake & Output 10/30/20 10/31/20 10/31/20 18:59 06:59 18:59 Intake Total 360 Balance 360 Intake: Oral 360 Other: Voiding Method Toilet # Voids 4 3 - Exam GENERAL EXAM: Alert, active, pleasant 30-year-old gentleman, on 3 L nasal cannula, comfortable in no apparent distress. HEAD: Normocephalic. EYES: Normal reaction of pupils, equal size. NOSE: Clear with pink turbinates. THROAT: No erythema or exudates. NECK: No masses, no JVD. CHEST: No chest wall deformity. LUNGS: Equal air entry with basilar crackles left greater than right, diminished in the left lung base. CVS: S1 and S2 normal with no audible murmur, regular rhythm. ABDOMEN: No hepatosplenomegaly, normal bowel sounds, no guarding or rigidity. SPINE: No scoliosis or deformity SKIN: No rashes CENTRAL NERVOUS SYSTEM: No focal deficits, tone is normal in all 4 extremities. EXTREMITIES: There is no peripheral edema. No clubbing, no cyanosis. Peripheral pulses are intact. - Labs CBC & Chem 7: 10/31/20 07:10 10/31/20 07:10 Labs: Abnormal Lab Results - Last 24 Hours (Table) 10/29/20 10/31/20 10/31/20 Range/Units 17:55 07:10 07:10 WBC 19.4 H (3.8-10.6) k/uL RBC 4.21 L (4.30-5.90) m/uL Hgb 12.5 L (13.0-17.5) gm/dL Hct 36.6 L (39.0-53.0) % Neutrophils # 17.3 H (1.3-7.7) k/uL Lymphocytes # 0.9 L (1.0-4.8) k/uL Glucose 123 H (74-99) mg/dL AST 92 H (17-59) U/L ALT 159 H (4-49) U/L Alkaline Phosphatase 140 H (38-126) U/L Total Protein 5.3 L (6.3-8.2) g/dL Albumin 2.7 L (3.5-5.0) g/dL Coronavirus (PCR) Detected A (Not Detected) Microbiology - Last 24 Hours (Table) 10/29/20 10:24 Blood Culture - Preliminary Blood No Growth after 48 hours 10/29/20 10:24 Blood Culture - Preliminary Blood No Growth after 48 hours Assessment and Plan Assessment: 1 Acute hypoxic respiratory failure secondary to COVID-19 pneumonia and possibility of community acquired pneumonia in the left lower lobe with parapneumonic pleural effusion. Patient was started on antibiotics and Remdesivir today on 10/29/2020 2 Elevated d-dimer of 1.[address] evidence of pulmonary embolism 3 Elevated liver enzymes, possibly related to viral pneumonia, negative for Legionella pneumonia 4 Hyponatremia, possibly related to dehydration 5 Former smoker Plan: The patient was seen and evaluated by Dr. Guerrier Currently stable from the pulmonary standpoint Continue the current treatment plan Titrate down the FiO2 as tolerated No plans for thoracentesis as the fluid is loculated in the left lung We'll continue to follow I, the cosigning physician, performed a history & physical examination of the patient. Lungs sounds bilateral crackles left greater than right, diminished left lung. Maintaining good O2 saturations in the 90s on 3 L/m per nasal cannula. I discussed the assessment and plan of care with my nurse practitioner, Isabel Edgar. I attest to the above note as dictated by her.
[2020-10-31] MEDS: REMDESIVIR 100 MG in SODIUM CHLORIDE 0.9% 250 ML IVPB SCH (15:31)
[2020-10-31] MEDS: ACETAMINOPHEN TAB 325 MG TAB PO PRN (17:39)
[2020-10-31] MEDS: AZITHROMYCIN 500 MG in SODIUM CHLORIDE 0.9% 250 ML IVPB SCH (20:48)
[2020-11-01] MEDS: ZINC SULFATE 220 MG CAP PO SCH (09:02)
[2020-11-01] MEDS: PANTOPRAZOLE 40 MG/10 ML VIAL IVP SCH (09:02)
[2020-11-01] MEDS: DEXAMETHASONE SOD PHOSPHATE 10 MG/ML 1 ML VIAL IV SCH (09:02)
[2020-11-01] MEDS: ASCORBIC ACID 500 MG TAB PO SCH ×2 (09:02→19:42)
[2020-11-01] MEDS: guaiFENesin-DM 600/30MG 1 EACH TAB.ER.12H PO SCH ×2 (09:02→19:42)
[2020-11-01] MEDS: ENOXAPARIN 40 MG/0.4 ML SYRINGE SQ SCH (09:03)
[2020-11-01 11:45] LABS: African American GFR (CKD) 144.7 (60.0-200.0); Albumin 3.1 g/dL (3.80-4.90); Albumin/Globulin Ratio 1.63 (1.60-3.17); Anion Gap 7.4 mmol/L (4.00-12.00); BUN/Creat Ratio 21.43 Ratio (12.00-20.00); Calcium 8.1 mg/dL (8.7-10.3); Carbon Dioxide 25.6 mmol/L (21.6-31.8); Globulin 1.9 g/dL (1.6-3.3); Non-African American GFR(CKD) 124.9 (60.0-200.0); Potassium 3.9 mmol/L (3.5-5.5); Total Bilirubin 0.6 mg/dL (0.2-1.2)
--- NOTE | 2020-11-01 13:45 | P.PN ---
Subjective Progress Note Date: 11/01/20 This is a 30-year-old gentleman admitted with COVID-19 pneumonia and possibly community-acquired pneumonia. Continues on Covid cocktail including Remdesevir as well as Zithromax and Rocephin for bacterial pneumonia. T-max 100.4, maintaining O2 sats in the low 90s on 3 L nasal cannula. LFTs elevated. Loc ulated left pleural effusion, no thoracentesis as per pulmonary. Positive cough. Objective - Vital Signs Vital signs: Vital Signs Temp 98.6 F 11/01/20 09:32 Pulse 85 11/01/20 09:32 Resp 18 11/01/20 09:32 BP 117/69 11/01/20 09:32 Pulse Ox 91 L 11/01/20 09:32 Intake & Output 10/31/20 11/01/20 11/01/20 18:59 06:59 18:59 Other: Voiding Method Toilet # Voids 3 2 - Exam - Exam GENERAL: Alert and oriented 3, Sitting up in bed, no acute distress. HEAD: Atraumatic, normocephalic. EYES: Pupils equal round and reactive to light, extraocular movements intact, sclera anicteric, conjunctiva normal. ENT: Clear without exudates. Moist mucous membranes. NECK: Supple, no JVD LUNGS: Breath sounds diminished with fine bibasilar crackles, mild expiratory wheeze HEART: Regular rate and rhythm without murmurs, rubs or gallops.S1S2 Normal ABDOMEN: Soft, nontender, normoactive bowel sounds. No guarding, EXTREMITIES: No edema. No clubbing or cyanosis. NEUROLOGICAL: Cranial nerves II through XII grossly intact. No focal deficits SKIN: Warm, Dry, no rashes noted. Microbiology 10/29/20 10:24 Blood Blood Culture - Preliminary No Growth after 72 hours 10/29/20 10:24 Blood Blood Culture - Preliminary No Growth after 72 hours - Labs CBC & Chem 7: 10/31/20 07:10 11/01/20 07:04 Labs: Abnormal Lab Results - Last 24 Hours (Table) 11/01/20 Range/Units 07:04 BUN/Creatinine Ratio 21.43 H (12.00-20.00) Ratio Calcium 8.1 L (8.7-10.3) mg/dL AST 89 H (14-35) U/L ALT 268 H (10-49) U/L Alkaline Phosphatase 151 H (41-126) U/L Total Protein 5.0 L (6.2-8.2) g/dL Albumin 3.10 L (3.80-4.90) g/dL Microbiology - Last 24 Hours (Table) 10/29/20 10:24 Blood Culture - Preliminary Blood No Growth after 72 hours 10/29/20 10:24 Blood Culture - Preliminary Blood No Growth after 72 hours Assessment and Plan Assessment: Acute COVID-19 pneumonia with possible community-acquired pneumonia left lower lobe with parapneumonic pleural effusion- loculated. Acute hypoxic respiratory failure secondary to the above Elevated d-dimer, no PE reported per CTA Dehydration Hyponatremia secondary to the above Elevated LFTs, suspected related to Covid. Former nicotine dependence Plan: Continue on current medication regime ,monitoring and symptomatic treatment. Continue on azithromycin, Rocephin in addition to Covid cocktail including Remdesevir. Titrate FiO2 as per parameters. The impression and plan of care has been dictated as directed. : I performed a history and examination of this patient, discussed the same with the dictator. I agree with the dictator's note ,documented as a scribe. Any additional findings or plans will be noted.
[2020-11-01 14:54] LABS: Basophils # (A) 0.05 X 10*3/uL (0.00-0.10); Basophils % (A) 0.3 %; Eosinophils # (A) 0 X 10*3/uL (0.04-0.35); Eosinophils % (A) 0 %; HCT 36.7 % (39.6-50.0); HGB 12.3 g/dL (13.0-17.0); Lymphocytes # (A) 1.45 X 10*3/uL (0.90-5.00); MCH 29.6 pg (27.0-32.0); MCHC 33.5 g/dL (32.0-37.0); MCV 88.2 fL (80.0-97.0); Mean Platelet Volume 10.8 fL (9.5-12.2); Monocytes % (A) 8.7 %; Neutrophils # (A) 12.73 X 10*3/uL (1.80-7.70); Platelet Count 430 X 10*3/uL (140-440); RBC 4.16 X 10*6/uL (4.40-5.60); RDW 13.4 % (11.5-14.5); WBC 16.11 X 10*3/uL (4.50-10.00)
[2020-11-01] MEDS: REMDESIVIR 100 MG in SODIUM CHLORIDE 0.9% 250 ML IVPB SCH (15:08)
[2020-11-01] MEDS: AZITHROMYCIN 500 MG in SODIUM CHLORIDE 0.9% 250 ML IVPB SCH (19:42)
[2020-11-02] MEDS: ASCORBIC ACID 500 MG TAB PO SCH ×2 (08:48→20:25)
[2020-11-02] MEDS: ENOXAPARIN 40 MG/0.4 ML SYRINGE SQ SCH (08:48)
[2020-11-02] MEDS: DEXAMETHASONE SOD PHOSPHATE 10 MG/ML 1 ML VIAL IV SCH (08:48)
[2020-11-02] MEDS: ZINC SULFATE 220 MG CAP PO SCH (08:48)
[2020-11-02] MEDS: PANTOPRAZOLE 40 MG TABLET PO SCH (08:48)
[2020-11-02] MEDS: guaiFENesin-DM 600/30MG 1 EACH TAB.ER.12H PO SCH ×2 (08:49→20:25)
--- NOTE | 2020-11-02 15:44 | P.PN ---
Subjective Progress Note Date: 11/02/20 This is a 30-year-old gentleman admitted with COVID-19 pneumonia and possibly community-acquired pneumonia. Continues on Covid cocktail including Remdesevir as well as Zithromax and Rocephin for bacterial pneumonia. T-max 100.4, maintaining O2 sats in the low 90s on 3 L nasal cannula. LFTs elevated. Loc ulated left pleural effusion, no thoracentesis as per pulmonary. Positive cough. 11/02/2020 unable to wean off oxygen, still requiring 2 L nasal cannula to maintain O2 sats in the 90s. O2 sat on room air after ambulation 85%. Afebrile. Reports stronger cough now productive, greenish sputum. Complaining today Remedesevir # 5. Afebrile. Denies chest pain, palpitations. Denies lightheadedness, dizziness or focal deficits. Objective - Vital Signs Vital signs: Vital Signs Temp 98.7 F 11/02/20 07:57 Pulse 81 11/02/20 07:57 Resp 16 11/02/20 07:57 BP 121/76 11/02/20 07:57 Pulse Ox 92 L 11/02/20 11:07 Intake & Output 11/01/20 11/02/20 11/02/20 18:59 06:59 18:59 Other: # Voids 2 2 - Exam - Exam GENERAL: Alert and oriented 3, Sitting up in bed, no acute distress. HEAD: Atraumatic, normocephalic. EYES: Pupils equal round and reactive to light,sclera anicteric, conjunctiva normal. ENT: Clear without exudates. Moist mucous membranes. NECK: Supple, no JVD LUNGS: Breath sounds diminished with fine bibasilar crackles HEART: Regular rate and rhythm without murmurs, rubs or gallops.S1S2 Normal ABDOMEN: Soft, nontender, normoactive bowel sounds. No guarding, EXTREMITIES: No edema. No clubbing or cyanosis. NEUROLOGICAL: Cranial nerves II through XII grossly intact. No focal deficits SKIN: Warm, Dry, no rashes noted. - Labs CBC & Chem 7: 11/01/20 07:04 11/01/20 07:04 Labs: Abnormal Lab Results - Last 24 Hours (Table) 11/01/20 Range/Units 07:04 WBC 16.11 H (4.50-10.00) X 10*3/uL RBC 4.16 L (4.40-5.60) X 10*6/uL Hgb 12.3 L (13.0-17.0) g/dL Hct 36.7 L (39.6-50.0) % Immature Gran # 0.48 H (0.00-0.04) X 10*3/uL Neutrophils # 12.73 H (1.80-7.70) X 10*3/uL Monocytes # 1.40 H (0.20-1.00) X 10*3/uL Eosinophils # 0 L (0.04-0.35) X 10*3/uL Microbiology - Last 24 Hours (Table) 10/29/20 10:24 Blood Culture - Preliminary Blood No Growth after 72 hours 10/29/20 10:24 Blood Culture - Preliminary Blood No Growth after 72 hours Assessment and Plan Assessment: Acute COVID-19 pneumonia with possible community-acquired pneumonia left lower lobe with parapneumonic pleural effusion- loculated. Acute hypoxic respiratory failure secondary to the above Elevated d-dimer, no PE reported per CTA Dehydration Hyponatremia secondary to the above Elevated LFTs, suspected related to Covid. Former nicotine dependence Plan: Continue on current medication regime ,monitoring and symptomatic treatment. Continue on azithromycin, Rocephin in addition to Covid cocktail. Discharge planning in progress for tomorrow-attempting to wean off O2. The impression and plan of care has been dictated as directed. : I performed a history and examination of this patient, discussed the same with the dictator. I agree with the dictator's note ,documented as a scribe. Any additional findings or plans will be noted.
[2020-11-02] MEDS: REMDESIVIR 100 MG in SODIUM CHLORIDE 0.9% 250 ML IVPB SCH (16:10)
[2020-11-02] MEDS ORDERED: AZITHROMYCIN 500 MG TAB PO SCH (21:00)
[2020-11-03] MEDS: PANTOPRAZOLE 40 MG TABLET PO SCH (09:49)
[2020-11-03] MEDS: DEXAMETHASONE SOD PHOSPHATE 10 MG/ML 1 ML VIAL IV SCH (09:49)
[2020-11-03] MEDS: guaiFENesin-DM 600/30MG 1 EACH TAB.ER.12H PO SCH (09:49)
[2020-11-03] MEDS: ENOXAPARIN 40 MG/0.4 ML SYRINGE SQ SCH (09:49)
[2020-11-03] MEDS: ASCORBIC ACID 500 MG TAB PO SCH (09:50)
[2020-11-03] MEDS: ZINC SULFATE 220 MG CAP PO SCH (09:50)
[2020-11-03 10:12] VITALS: BP 128/77; PULSE 89; RESP 22; TEMP 98.7
--- NOTE | 2020-11-03 11:24 | P.DS ---
Providers Date of admission: 10/29/20 13:27 Expected date of discharge: 11/03/20 Attending physician: Kareem Valladares Consults: 10/29/20 13:34 Consult Physician Urgent Consulting Provider: Paloma Guerrier Consult Reason/Comments: Covid pneumonia, hypoxia, pleural effusion Do you want consulting provider notified?: Yes Primary care physician: Steve Banda Hospital Course: Final Diagnoses: Acute COVID-19 pneumonia with possible community-acquired pneumonia left lower lobe with parapneumonic pleural effusion- loculated. Acute hypoxic respiratory failure secondary to the above Elevated d-dimer, no PE reported per CTA Dehydration Hyponatremia secondary to the above Elevated LFTs, suspected related to Covid. Former nicotine dependence Hospital course:This is a 30-year-old gentleman admitted with COVID-19 pneumonia and possibly community-acquired pneumonia. Continues on Covid cocktail including Remdesevir as well as Zithromax and Rocephin for bacterial pneumonia. T-max 100 .4, maintaining O2 sats in the low 90s on 3 L nasal cannula. LFTs elevated. Loculated left pleural effusion, no thoracentesis as per pulmonary. Positive cough. 11/02/2020 unable to wean off oxygen, still requiring 2 L nasal cannula to maintain O2 sats in the 90s. O2 sat on room air after ambulation 85%. Afebrile. Reports stronger cough now productive, greenish sputum. Complaining today Remedesevir # 5. Afebrile. Denies chest pain, palpitations. Denies lightheadedness, dizziness or focal deficits. Significant clinical improvement. O2 sat on room air after ambulation 88%. 2 L nasal cannula oxygen at discharge being arranged per case management. Patient will be discharged home today, in a stable condition with guarded prognosis, pending final DC recommendations and clearance from pulmonary. The impression and plan of care has been dictated as directed. : I performed a history and examination of this patient, discussed the same with the dictator. I agree with the dictator's note ,documented as a scribe. Any additional findings or plans will be noted. Patient Condition at Discharge: Stable Plan - Discharge Summary New Discharge Prescriptions: New guaiFENesin-DM 600/30MG [Mucinex Dm] 1 each PO Q12HR tab.er.12h Zinc Sulfate [Orazinc] 220 mg PO DAILY cap Acetaminophen Tab [Tylenol] 650 mg PO Q6HR PRN tab PRN Reason: Mild Pain Or Fever > 100.5 Cefuroxime Axetil [Ceftin] 500 mg PO BID 1 Days #10 tab Aspirin EC [Ecotrin Low Dose] 81 mg PO DAILY 60 Days #60 tablet. Ascorbic Acid [Vitamin C] 500 mg PO BID tab Dexamethasone [Decadron] 6 mg PO DAILY 5 Days #5 tablet Discharge Medication List Acetaminophen Tab [Tylenol] 650 mg PO Q6HR PRN tab 11/03/20 [Rx] Ascorbic Acid [Vitamin C] 500 mg PO BID tab 11/03/20 [Rx] Aspirin EC [Ecotrin Low Dose] 81 mg PO DAILY 60 Days #60 tablet. 11/03/20 [Rx] Cefuroxime Axetil [Ceftin] 500 mg PO BID 1 Days #10 tab 11/03/20 [Rx] Dexamethasone [Decadron] 6 mg PO DAILY 5 Days #5 tablet 11/03/20 [Rx] Zinc Sulfate [Orazinc] 220 mg PO DAILY cap 11/03/20 [Rx] guaiFENesin-DM 600/30MG [Mucinex Dm] 1 each PO Q12HR tab.er.12h 11/03/20 [Rx] Follow up Appointment(s)/Referral(s): Steve Banda MD [Primary Care Provider] - 1 Week (Tele visit) Claudy Rodriguez DO [Doctor of Osteopathic Medicine] - 2 Weeks Activity/Diet/Wound Care/Special Instructions: Pending final DC recommendations and clearance from pulmonary O2 sat on room air after ambulation 88%, 2 L nasal cannula 02 at discharge Complete quarantine as advised.
== END 2020-11-03 18:15 | disposition home or self-care (01) | DRG 177 ==
LOC: EC 09:54 → 4SSUR 13:27
PROVIDERS: ADMIT Family Medicine; ATTEND Family Medicine
PROC: XW033E5 Introduction of Remdesivir Anti-infective into Peripheral Vein, Percutaneous Approach, New Technology Group 5 (ICD-10-PCS; principal; 2020-10-29)
DX: U07.1 COVID-19 (principal); J12.82 Pneumonia due to coronavirus disease 2019; J96.01 Acute respiratory failure with hypoxia; J15.9 Unspecified bacterial pneumonia; J91.8 Pleural effusion in other conditions classified elsewhere; E87.1 Hypo-osmolality and hyponatremia; A08.39 Other viral enteritis; E86.0 Dehydration; D72.810 Lymphocytopenia; Z87.891 Personal history of nicotine dependence
CPT/HCPCS: 36415; 71045; 71275; 76604; 80053; 83605; 83615; 83735; 84145; 85025; 85379; 85610; 85730; 86140; 87040; 87449; 93005; 96360; 96361; 99285